=== PATIENT | female | born 1995 | race Caucasian/White ===

== ENCOUNTER 2016-05-18 21:46 | Emergency (ER) | payer OTHER ==
[~2016-05-18 21:46] MED LIST: AUGM875T PO; PHEN12.5 PO; PROM25TA5 PO; PROM2SUP PR; TRAM50TA PO; ZOFR4TAB3 SL
[2016-05-18 21:48] VITALS: BP 119/72; PULSE 98; RESP 16; TEMP 98.6; O2SAT 99
[2016-05-18] MEDS ORDERED: DICL75TA PO (23:11)
[2016-05-18] MEDS ORDERED: CYCL1TAB29 PO (23:11)
--- NOTE | 2016-05-18 23:14 | PD ---
HPI Chief Complaint: Back/ Neck Pain or Injury Time Seen by Provider: 23:12 Travel History International Travel<30 days: No Contact w/Intl Traveler<30days: No Traveled to known affect area: No History of Present Illness HPI 20-year-old black female presents to emergency department with complaints of lower back pain. She states it has been going on for approximately 1-2 weeks. No injury. 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 Pain is mild to moderate. Worse with movement. Some relief remaining still. She denies any acute bowel or bladder changes. No dysuria or frequency. She denies . No vaginal complaints. PFSH Past Medical History Medical History: Denies Significant Hx Diminished Hearing: No Immunizations Current: Yes Tetanus Vaccination: < 5 Years Influenza Vaccination: No ?: Unknown : 0 Ectopic : No Ovarian Cysts: No Tubal Ligation: No Past Surgical History Surgical History: No Previous Surgery Hysterectomy: No Social History Alcohol Use: No Tobacco Use: No Substance Use: No Allergies-Medications (Allergen,Severity, Reaction): Coded Allergies: No Known Allergies (Verified , 05/18/16) Reported Meds & Prescriptions Reported Meds & Active Scripts Active Flexeril (Cyclobenzaprine HCl) 10 Mg Tab 10 Mg PO TID Diclofenac Sodium DR (Diclofenac Sodium) 75 Mg Tabdr 75 Mg PO BID Review of Systems Except as stated in HPI: all other systems reviewed are Neg Physical Exam Narrative GENERAL: This is a well-nourished, well-developed patient, in no apparent distress. SKIN: No rashes, ecchymoses or lesions. Warm and dry. HEAD: Atraumatic. Normocephalic. EYES: PERRL, EOMI, no discharge or injection. No scleral icterus. EARS: Clear NOSE: Nasal turbinates appear normal. THROAT: Mucosa pink and moist. Airway patent. NECK: Trachea midline. supple, moves head freely. LUNGS: Clear to auscultation. CV: Regular in rhythm. ABDOMEN: Soft nontender. EXT: No clubbing cyanosis or edema. Back: No central bony tenderness to palpation of the dorsal lumbar spine. She complains of lower paralumbar tenderness. No gross spasm. She is able to bend to 90. No saddle anesthesia. Heel and toe stand. No gross spasm. Data Data Last Documented VS Vital Signs Date Time Temp Pulse Resp B/P Pulse Ox O2 Delivery O2 Flow Rate FiO2 05/18/16 21:48 98.6 98 16 119/72 99 Room Air MDM Medical Decision Making Medical Screen Exam Complete: Yes Emergency Medical Condition: Yes Medical Record Reviewed: Yes Differential Diagnosis MDM: High Differential diagnoses: Fracture, sprain, strain, HNP, nerve or vascular injury , epidural abscess, pilonidal cyst Narrative Course Patient is given Naprosyn 500 mg and Flexeril 10 mg by mouth. This is acute back pain Diagnosis Primary Impression: Acute back pain Qualified Code: M54.5 - Acute bilateral low back pain without sciatica Patient Instructions: General Instructions Departure Forms: Tests/Procedures, Work Release Special Instructions: No work 3 days. Additional Instructions: Rest. Ice for the next 3 days followed by heat . Flexeril and Voltaren. Follow-up with a primary care doctor in one week. Return to the ER for emergencies. Med/Other Pt SpecificInfo: Prescription(s) given Scripts Cyclobenzaprine (Flexeril)10 Mg Tab10 Mg PO TID #21 TAB Prov:Sonali Chau MD 05/18/[address] 75 Mg Tabdr75 Mg PO BID #20 TAB Prov:Sonali Chau MD 05/18/16 Disposition: 01 DISCHARGE HOME Condition: Stable Pop Fernández May 18, 2016 23:14
[2016-05-18] MEDS ORDERED: CYCLOBENZAPRINE HCL 10 MG TAB PO ONE (23:15)
[2016-05-18] MEDS ORDERED: NAPROXEN 500 MG TAB PO ONE (23:15)
== END 2016-05-18 23:25 | disposition home or self-care (01) ==
LOC: NEPK 21:46
DX: M54.5 Low back pain (principal)
CPT/HCPCS: 99283

== ENCOUNTER → 2016-08-20 | Outpatient (CLI) | payer OTHER ==
[~2016-08-20] MED LIST changes: -AUGM875T PO; +CYCL1TAB29 PO; +DICL75TA PO; -PHEN12.5 PO; -PROM25TA5 PO; -PROM2SUP PR; -TRAM50TA PO; -ZOFR4TAB3 SL
[2016-08-20 12:11] LABS: HEMATOCRIT 40.6 % (35.0-46.0); MEAN CELL VOLUME 86.7 FL (80.0-100.0); MEAN CORPUSCULAR HEMOGLOBIN 29.6 PG (27.0-34.0); MEAN CORPUSCULAR HGB CONC 34.1 % (32.0-36.0); PLATELET COUNT 203 TH/MM3 (150-450); RED BLOOD COUNT 4.69 MIL/MM3 (4.00-5.30); RED CELL DISTRIBUTION WIDTH 12.8 % (11.6-17.2); REVIEW FLAG FINAL; WHITE BLOOD COUNT 10.3 TH/MM3 (4.0-11.0)
[2016-08-20 14:01] LABS: CHLAMYDIA PCR NOT DETECTED (NOT DETECT); NEISSERIA PCR NOT DETECTED (NOT DETECT)
[2016-08-20 14:42] LABS: ANION GAP 10 MEQ/L (5-15); AST (GOT) 20 U/L (15-37); BICARBONATE 21.2 MEQ/L (21.0-32.0); BLOOD UREA NITROGEN 9 MG/DL (7-18); CHLORIDE 105 MEQ/L (98-107); GLOMERULAR FILTRATION RATE 87 ML/MIN (>89); GLUCOSE,FASTING 90 MG/DL (74-99); POTASSIUM 3.7 MEQ/L (3.5-5.1); SODIUM (NA) 136 MEQ/L (136-145)
[2016-08-20 14:52] LABS: ALKALINE PHOSPHATASE 60 U/L (45-117); ALT (GPT) 15 U/L (10-53); TOTAL BILIRUBIN ADULT 0.7 MG/DL (0.2-1.0)
== END ==
LOC: CLAB 11:34
PROVIDERS: ATTEND Family Medicine
DX: N89.8 Other specified noninflammatory disorders of vagina (principal)
CPT/HCPCS: 36415; 80053; 84443; 85027; 87491; 87591

== ENCOUNTER → 2016-09-25 | Outpatient (CLI) | payer OTHER ==
[2016-09-25 15:29] LABS: CHLAMYDIA PCR NOT DETECTED (NOT DETECT); NEISSERIA PCR NOT DETECTED (NOT DETECT)
== END ==
LOC: CLAB 12:07
PROVIDERS: ATTEND Nurse Practitioner Family
DX: Z72.53 High risk bisexual behavior (principal)
CPT/HCPCS: 87491; 87591

== ENCOUNTER 2017-03-25 20:59 | Emergency (ER) | payer OTHER ==
[~2017-03-25] VITALS: Ht 154.9 cm; Wt 50.0 kg
[2017-03-25 21:01] VITALS: BP 115/65; PULSE 77; RESP 14; TEMP 98.6; O2SAT 99
[2017-03-25] MEDS ORDERED: SODIUM CHLOR 0.9% 1000 ML INJ 1,000 ML IV SCH (21:40)
--- NOTE | 2017-03-25 21:40 | PD ---
HPI Chief Complaint: Cold / Flu Symptoms Time Seen by Provider: 21:39 Travel History International Travel<30 days: No Contact w/Intl Traveler<30days: No Traveled to known affect area: No History of Present Illness HPI 21-year-old female presents emergency department for evaluation nausea vomiting all day. She states she feels weak and has body aches. She has decreased urinary output. Denies any chance of . States that she has started her menstrual cycle today, it is light and spotting. Denies any cough or chest congestion. One episode of diarrhea. No other symptoms to report. PFSH Past Medical History Medical History: Denies Significant Hx Diminished Hearing: No Immunizations Current: Yes Tetanus Vaccination: Unknown Influenza Vaccination: No ?: Not LMP: 03/25/17 : 0 Ectopic : No Ovarian Cysts: No Tubal Ligation: No Past Surgical History Surgical History: No Previous Surgery Hysterectomy: No Social History Alcohol Use: No Tobacco Use: No Substance Use: No Allergies-Medications (Allergen,Severity, Reaction): Coded Allergies: No Known Allergies (Verified , 09/25/16) Reported Meds & Prescriptions Reported Meds & Active Scripts Active Ibuprofen 600 Mg Tab 600 Mg PO Q6H PRN Zofran Odt (Ondansetron Odt) 4 Mg Tab 4 Mg SL Q6HR PRN Review of Systems Except as stated in HPI: all other systems reviewed are Neg Physical Exam Narrative GENERAL: Well-nourished female patient, in no acute distress. SKIN: Focused skin assessment warm/dry. HEAD: Atraumatic. Normocephalic. EYES: Pupils equal and round. No scleral icterus. No injection or drainage. ENT: Mucosa pink and moist. No erythema with one exudate. No uvular edema. No uvular, palatal, or tonsillar deviation. Airway patent. Nasal turbinates appear normal without nasal blood, purulent drainage or septal hematoma. NECK: Trachea midline. No JVD. CARDIOVASCULAR: Regular rate and rhythm. No murmur appreciated. RESPIRATORY: No accessory muscle use. Clear to auscultation. Breath sounds equal bilaterally. GASTROINTESTINAL: Abdomen soft, non-tender, nondistended. Hepatic and splenic margins not palpable. MUSCULOSKELETAL: No obvious deformities. No clubbing. No cyanosis. No edema. NEUROLOGICAL: Awake and alert. No obvious cranial nerve deficits. Motor grossly within normal limits. Normal speech. PSYCHIATRIC: Appropriate mood and affect; insight and judgment normal. Data Data Last Documented VS Vital Signs Date Time Temp Pulse Resp B/P (MAP) Pulse Ox O2 Delivery O2 Flow Rate FiO2 03/26/17 01:34 102/68 (79) 100 03/25/17 22:00 80 16 03/25/17 21:01 98.6 Room Air Orders Orders Basic Metabolic Panel (Bmp) (03/25/17 21:40) Complete Blood Count With Diff (03/25/17 21:40) Urinalysis - C+S If Indicated (03/25/17 21:40) Iv Access Insert/Monitor (03/25/17 21:40) Ecg Monitoring (03/25/17 21:40) Oximetry (03/25/17 21:40) Sodium Chlor 0.9% 1000 Ml Inj (Ns 1000 M (03/25/17 21:40) Sodium Chloride 0.9% Flush (Ns Flush) (03/25/17 21:45) Ed Urine Pregnancytest Poc (03/25/17 21:40) Sodium Chlor 0.9% 1000 Ml Inj (Ns 1000 M (03/25/17 21:45) Influenzae A/B Antigen (03/25/17 21:40) Group A Rapid Strep Screen (03/25/17 21:40) Strep Culture (Group A) (03/25/17 21:45) Urine Culture (03/25/17 21:45) Ketorolac Inj (Toradol Inj) (03/25/17 23:15) Diphenhydramine Liq (Benadryl Liq) (03/25/17 23:15) Ed Discharge Order (03/25/17 23:28) Ondansetron Inj (Zofran Inj) (03/25/17 23:45) Labs Laboratory Tests Test 03/25/17 21:45 White Blood Count 11.0 TH/MM3 Red Blood Count 4.44 MIL/MM3 Hemoglobin 13.3 GM/DL Hematocrit 39.1 % Mean Corpuscular Volume 88.2 FL Mean Corpuscular Hemoglobin 30.0 PG Mean Corpuscular Hemoglobin Concent 34.0 % Red Cell Distribution Width 13.1 % Platelet Count 150 TH/MM3 Mean Platelet Volume 9.6 FL Neutrophils (%) (Auto) 92.4 % Lymphocytes (%) (Auto) 3.0 % Monocytes (%) (Auto) 4.2 % Eosinophils (%) (Auto) 0.1 % Basophils (%) (Auto) 0.3 % Neutrophils # (Auto) 10.2 TH/MM3 Lymphocytes # (Auto) 0.3 TH/MM3 Monocytes # (Auto) 0.5 TH/MM3 Eosinophils # (Auto) 0.0 TH/MM3 Basophils # (Auto) 0.0 TH/MM3 CBC Comment DIFF FINAL Differential Comment Urine Color LIGHT-RED Urine Turbidity HAZY Urine pH 6.5 Urine Specific [place] 1.035 Urine Protein 100 mg/dL Urine Glucose (UA) NEG mg/dL Urine Ketones 10 mg/dL Urine Occult Blood LARGE Urine Nitrite NEG Urine Bilirubin NEG Urine Urobilinogen 2.0 MG/DL Urine Leukocyte Esterase SMALL Urine RBC /hpf Urine WBC 54 /hpf Urine Squamous Epithelial Cells 11 /hpf Urine Bacteria RARE /hpf Urine Mucus MANY /lpf Microscopic Urinalysis Comment CULTURE INDICATED Blood Urea Nitrogen 9 MG/DL Creatinine 0.53 MG/DL Random Glucose 99 MG/DL Calcium Level 8.3 MG/DL Sodium Level 138 MEQ/L Potassium Level 3.4 MEQ/L Chloride Level 107 MEQ/L Carbon Dioxide Level 22.9 MEQ/L Anion Gap 8 MEQ/L Estimat Glomerular Filtration Rate 144 ML/MIN MDM Medical Decision Making Medical Screen Exam Complete: Yes Emergency Medical Condition: Yes Medical Record Reviewed: Yes Differential Diagnosis Influenza versus strep versus common cold versus viral syndrome versus gastritis versus gastroenteritis Narrative Course 21-year-old female presents emergency department for evaluation nausea vomiting and weakness. She also reports decreased urinary output. Basic lab work is ordered. Influenza and rapid strep screen are also ordered. Patient is given IV fluids. Patient is signed out to my attending physician. Disposition will pend his judgment. Diagnosis Primary Impression: Nausea & vomiting Qualified Codes: R11.2 - Nausea with vomiting, unspecified Referrals: Primary Care Physician Patient Instructions: Acute Nausea and Vomiting (ED), General Instructions Departure Forms: Tests/Procedures, Work Release Enter return to work date: Mar 27, 2017 Additional Instructions: Rest Maintain adequate oral hydration Follow-up with primary care provider Return immediately with any acute worsening symptoms. Med/Other Pt SpecificInfo: No Meds Exist/No RX given Scripts Ibuprofen (Ibuprofen) 600 Mg Tab 600 MG PO Q6H Y for Pain/Inflammation, #20 TAB 0 Refills Prov: Jeff Don MD 03/25/17 Ondansetron Odt (Zofran Odt) 4 Mg Tab 4 MG SL Q6HR Y for Nausea/Vomiting, #20 TAB 0 Refills Prov: Jeff Don MD 03/25/17 Disposition: 01 DISCHARGE HOME Condition: Stable Mary Pretty Mar 25, 2017 21:40
[2017-03-25] MEDS ORDERED: SODIUM CHLORIDE 0.9% FLUSH 10 ML FLUSH IV FLUSH PRN (21:45)
[2017-03-25] MEDS ORDERED: SODIUM CHLOR 0.9% 1000 ML INJ 1,000 ML IV ONE (21:45)
[2017-03-25 22:00] VITALS: BP 100/59; PULSE 80; RESP 16; O2SAT 100
[2017-03-25 22:11] VITALS: O2SAT 100
[2017-03-25 22:37] LABS: AUTOMATED NEUTROPHIL # 10.2 TH/MM3 (1.8-7.7); BASOPHIL % 0.3 % (0.0-2.0); EOSINOPHIL % 0.1 % (0.0-4.0); HEMATOCRIT 39.1 % (35.0-46.0); HEMOGLOBIN 13.3 GM/DL (11.6-15.3); LYMPHOCYTE # 0.3 TH/MM3 (1.0-4.8); MEAN CELL VOLUME 88.2 FL (80.0-100.0); MEAN PLATELET VOLUME 9.6 FL (7.0-11.0); MONO % 4.2 % (0.0-8.0); MONOCYTE # 0.5 TH/MM3 (0-0.9); NEUT % 92.4 % (16.0-70.0); PLATELET COUNT 150 TH/MM3 (150-450); RED BLOOD COUNT 4.44 MIL/MM3 (4.00-5.30); RED CELL DISTRIBUTION WIDTH 13.1 % (11.6-17.2)
[2017-03-25 22:50] LABS: BACTERIA, URINE RARE /hpf; BILIRUBIN, URINE NEG (NEG); BLOOD, URINE LARGE (NEG); GLUCOSE,URINE NEG (NEG); KETONE, URINE 10 mg/dL (NEG); MUCUS URINE MANY /lpf (OCC); NITRITE,URINE NEG (NEG); PH, URINE 6.5 (5.0-8.5); SQUAMOUS EPITHELIAL CELL URINE 11 /hpf (0-5); URINE LEUKOCYTE ESTERASE SMALL (NEG)
[2017-03-25 22:51] LABS: URINE COLOR LIGHT-RED (YELLW/STRAW)
[2017-03-25 23:02] LABS: BICARBONATE 22.9 MEQ/L (21.0-32.0); CALCIUM 8.3 MG/DL (8.5-10.1); CREATININE 0.53 MG/DL (0.50-1.00)
[2017-03-25] MEDS ORDERED: diphenhydrAMINE HCL ELIXIR 12.5 MG/5 ML CUP PO ONE (23:15)
[2017-03-25] MEDS ORDERED: KETOROLAC TROMETHAMINE 30 MG/ML (IVP) VIAL IV PUSH ONE (23:15)
[2017-03-25] MEDS ORDERED: IBUP-232 PO (23:27)
[2017-03-25] MEDS ORDERED: ZOFR4TAB3 SL (23:27)
--- NOTE | 2017-03-25 23:28 | PD ---
Physical Exam Date Seen by Provider: Mar 25, 2017 Time Seen by Provider: 23:30 Narrative pt has normal labs and flu negative swab toradol and benadryl. D/C home follow up as out pt . Data Data Last Documented VS Vital Signs Date Time Temp Pulse Resp B/P (MAP) Pulse Ox O2 Delivery O2 Flow Rate FiO2 03/26/17 01:34 102/68 (79) 100 03/25/17 22:00 80 16 03/25/17 21:01 98.6 Room Air Orders Orders Basic Metabolic Panel (Bmp) (03/25/17 21:40) Complete Blood Count With Diff (03/25/17 21:40) Urinalysis - C+S If Indicated (03/25/17 21:40) Iv Access Insert/Monitor (03/25/17 21:40) Ecg Monitoring (03/25/17 21:40) Oximetry (03/25/17 21:40) Sodium Chlor 0.9% 1000 Ml Inj (Ns 1000 M (03/25/17 21:40) Sodium Chloride 0.9% Flush (Ns Flush) (03/25/17 21:45) Ed Urine Pregnancytest Poc (03/25/17 21:40) Sodium Chlor 0.9% 1000 Ml Inj (Ns 1000 M (03/25/17 21:45) Influenzae A/B Antigen (03/25/17 21:40) Group A Rapid Strep Screen (03/25/17 21:40) Strep Culture (Group A) (03/25/17 21:45) Urine Culture (03/25/17 21:45) Ketorolac Inj (Toradol Inj) (03/25/17 23:15) Diphenhydramine Liq (Benadryl Liq) (03/25/17 23:15) Ed Discharge Order (03/25/17 23:28) Ondansetron Inj (Zofran Inj) (03/25/17 23:45) Labs Laboratory Tests Test 03/25/17 21:45 White Blood Count 11.0 TH/MM3 Red Blood Count 4.44 MIL/MM3 Hemoglobin 13.3 GM/DL Hematocrit 39.1 % Mean Corpuscular Volume 88.2 FL Mean Corpuscular Hemoglobin 30.0 PG Mean Corpuscular Hemoglobin Concent 34.0 % Red Cell Distribution Width 13.1 % Platelet Count 150 TH/MM3 Mean Platelet Volume 9.6 FL Neutrophils (%) (Auto) 92.4 % Lymphocytes (%) (Auto) 3.0 % Monocytes (%) (Auto) 4.2 % Eosinophils (%) (Auto) 0.1 % Basophils (%) (Auto) 0.3 % Neutrophils # (Auto) 10.2 TH/MM3 Lymphocytes # (Auto) 0.3 TH/MM3 Monocytes # (Auto) 0.5 TH/MM3 Eosinophils # (Auto) 0.0 TH/MM3 Basophils # (Auto) 0.0 TH/MM3 CBC Comment DIFF FINAL Differential Comment Urine Color LIGHT-RED Urine Turbidity HAZY Urine pH 6.5 Urine Specific [place] 1.035 Urine Protein 100 mg/dL Urine Glucose (UA) NEG mg/dL Urine Ketones 10 mg/dL Urine Occult Blood LARGE Urine Nitrite NEG Urine Bilirubin NEG Urine Urobilinogen 2.0 MG/DL Urine Leukocyte Esterase SMALL Urine RBC /hpf Urine WBC 54 /hpf Urine Squamous Epithelial Cells 11 /hpf Urine Bacteria RARE /hpf Urine Mucus MANY /lpf Microscopic Urinalysis Comment CULTURE INDICATED Blood Urea Nitrogen 9 MG/DL Creatinine 0.53 MG/DL Random Glucose 99 MG/DL Calcium Level 8.3 MG/DL Sodium Level 138 MEQ/L Potassium Level 3.4 MEQ/L Chloride Level 107 MEQ/L Carbon Dioxide Level 22.9 MEQ/L Anion Gap 8 MEQ/L Estimat Glomerular Filtration Rate 144 ML/MIN [facility] Supervised Visit with GREER: Yes Diagnosis Primary Impression: Nausea & vomiting Qualified Codes: R11.2 - Nausea with vomiting, unspecified Referrals: Primary Care Physician Patient Instructions: General Instructions, Acute Nausea and Vomiting (ED) Departure Forms: Work Release, Enter return to work date: Tests/Procedures Additional Instruction: Rest Maintain adequate oral hydration Follow-up with primary care provider Return immediately with any acute worsening symptoms. Scripts Ibuprofen (Ibuprofen) 600 Mg Tab 600 MG PO Q6H Y for Pain/Inflammation, #20 TAB 0 Refills Prov: Jeff Don MD 03/25/17 Ondansetron Odt (Zofran Odt) 4 Mg Tab 4 MG SL Q6HR Y for Nausea/Vomiting, #20 TAB 0 Refills Prov: Jeff Don MD 03/25/17 Disposition: 01 DISCHARGE HOME Condition: Stable Jeff Don MD Mar 25, 2017 23:28
[2017-03-25] MEDS ORDERED: ONDANSETRON HCL 4 MG/2 ML VIAL IV PUSH ONE (23:45)
[2017-03-26 01:34] VITALS: BP 102/68
== END 2017-03-26 01:35 | disposition home or self-care (01) ==
LOC: NEPC 20:59
DX: R11.2 Nausea with vomiting, unspecified (principal); B96.89 Other specified bacterial agents as the cause of diseases classified elsewhere
CPT/HCPCS: 80048; 81001; 84703; 85025; 87081; 87086; 87804; 87880; 96361; 96374; 96375; 99284; J1885; J2405; J7030